=== PATIENT | male | born 1980 | race Caucasian/White ===

== ENCOUNTER 2020-12-19 06:09 | Inpatient (IN) | payer BC, SELFPAY ==
[2020-12-19 06:10] VITALS: BP 168/97; PULSE 87; RESP 18; TEMP 36.5; O2SAT 100; BMI 26.7
--- NOTE | 2020-12-19 06:19 | CT_ITS ---
STUDY: CT ABDOMEN AND PELVIS WITH CONTRAST REASON FOR EXAM: Male, 40 years old. LOW ABDONIMAL PAIN, HISTORY OF GASTROSCHISIS AND OBSTRUCTION RADIATION DOSAGE (If Supplied By Facility): CTDIvol = ( 11.66 ) mGy, DLP = ( 743.80 ) mGycm TECHNIQUE: Transaxial images were obtained from the dome of the diaphragm to the symphysis pubis with oral contrast. Oral and amp; IV Gastrografin and amp; 100mL Isovue-300 was administered. Sagittal and coronal images were reconstructed. Individualized dose optimization techniques were used for this CT. COMPARISON: None. FINDINGS: Lung bases: Mild atelectasis/dependent changes. Heart: Unremarkable. Liver: Unremarkable. Gallbladder/biliary ducts: Unremarkable. Pancreas: Unremarkable. Spleen: Punctate splenic granuloma. Adrenal glands: Unremarkable. Kidneys/ureters/bladder: Unremarkable. Prostate: Punctate prostate calcifications. Large bowel/small bowel: Acute small bowel obstruction with point of transition near midline (axial image 90 series 2). Small bowel feces sign (axial image 84 series 2). No perforation. No pneumatosis. Collapsed distal small bowel (axial image 71 series 2). No significant bowel wall thickening. No acute large vessel process. Appendix: Unremarkable (axial image 85 series 2). Gastroesophageal junction/stomach: Unremarkable. Retroperitoneum/lymph nodes: No intra-abdominal free air. No ascites. No pathologically enlarged lymph nodes. Vascular: Unremarkable. Osseous structures: No significant degenerative features. No acute process. Subcutaneous/soft tissues: Ventral scar likely related to patient''s history of gastroschisis. No acute process. CT/Abdomen/Pelvis WITH Contrast IMPRESSION: Acute small bowel obstruction with point of transition near midline Electronically Signed: Jacob Pérez DO at 8:23 EST Tel , Service support ,
--- NOTE | 2020-12-19 06:20 | ED.VIS.GI ---
History of Present Illness Informant: Patient - Abdominal Pain/Flank Pain Onset: Today - around 5 hrs [employer] Context: Sudden Onset Timing: Continuous Quality: Aching Location: - - just right of umbilicus Current Severity: Severe Maximum Severity: Severe Worsened by: Nothing Relieved by: Nothing - Nausea/Vomiting/Emesis GI Symptom: Negative for: Nausea, Vomiting - Diarrhea/Melena/Hematochezia GI Symptom: - - Stopped having bowel movements. See below.. Negative for: Diarrhea, Melena, Hematochezia Associated Symptoms: Negative for: Dysuria, Frequency, Hematuria, Urgency Narrative: Patient had gastroschisis with surgical repair as a , and since then has had 10 or 12 small bowel obstructions. He presents having pain that feels just like 1 of these. He states he typically has 4 or 5 bowel movements per day, and he has not had a bowel movement in 14-16 hours, which is very unusual for him. He denies any vomiting. He has never had to have surgery to repair a bowel obstruction. The majority of his hospitalizations for these issues have been with [facility], however he lives here now. He denies any recent illness or injury prior to the symptoms starting this morning. <Dakota Mejia - Last Filed: 12/19/20 06:20> <Geraldo Marsh - Last Filed: 12/19/20 08:35> Chief Complaint: Abd Pain Past Medical History Past Medical History: None - Except bowel obstructions Surgical History: - - Gastroschisis repair per patient Smoking Status: Former smoker <Dakota Mejia - Last Filed: 12/19/20 06:20> <Geraldo Marsh - Last Filed: 12/19/20 08:35> - Allergies and Home Meds Allergies/Adverse Reactions: Allergies No Known Allergies Allergy (Verified 12/19/20 06:14) Primary Care Physician: Care Physician,No Primary [Primary Care Provider] - Review of Systems General: Denies: Chills, Fever, Sweats Eyes: Denies: Visual changes - bilaterally, Diplopia ENT: Denies: Rhinorrhea, Sore throat Cardiovascular: Denies: Chest pain, Palpitations Respiratory: Denies: Dyspnea, Cough, Dyspnea on exertion Gastrointestinal: Reports: Abdominal pain. Denies: Nausea, Vomiting, Diarrhea, Melena, Hematochezia Genitourinary: Denies: Dysuria, Hematuria, Frequency Musculoskeletal: Denies: Back pain, Swelling, Extremity Pain Skin: Denies: Rash, Wounds Neurological: Denies: Headache, Weakness, Numbness <Dakota Mejia - Last Filed: 12/19/20 06:20> Physical Exam Vital Signs/Narrative: Vital Signs Temp Pulse Resp BP Pulse Ox 12/19/20 06:10 97.7 F L 87 18 168/97 H 100 Inital Vital Signs reviewed: Yes General: Well nourished, Well developed, Acute Distress - Mild, uncomfortable, holding abdomen and pain Head: Normocephalic, Atraumatic Eyes: Perrl, EOMI ENT: Moist mucous membranes, No rhinorrhea Neck: Supple, Nontender Cardiovascular: Regular rate, Regular rhythm, No murmurs Respiratory: No distress, CTA bilaterally, Chest nontender Abdomen: Soft, Normal bowel sounds, No masses, Tender - Very tender just right of umbilicus, otherwise benign, - - Mild distention. Negative for: Guarding, Rebound tenderness Back: Nontender, Normal Inspection. Negative for: CVA tenderness Extremities: Nontender, No edema. Negative for: Calf Tenderness Skin: Normal color, No rash, No Trauma Neurological: Alert, Oriented x3, Cranial nerves II-XII grossly intact, Normal Strength, Normal Sensation, Normal Gait Psychological: Normal affect, Normal Mood <Dakota Mejia - Last Filed: 12/19/20 06:20> Vital Signs/Narrative: Vital Signs Temp Pulse Resp BP Pulse Ox 12/19/20 06:10 97.7 F L 87 18 168/97 H 100 <Geraldo Marsh - Last Filed: 12/19/20 08:35> Diagnostic/Tx/Re-eval - Medical Decision Making IV fluids ordered along with analgesics and prophylactic Zofran, patient states he should be able to tolerate oral contrasted CT scan. Suspect patient will likely have a bowel obstruction and require admission to the hospital, patient checked out to oncoming emergency physician at shift change. <Dakota Mejia - Last Filed: 12/19/20 06:20> Clinical Impression(s) from Imaging Studies Abdomen/Pelvis CT 12/19/20 06:19 IMPRESSION: Acute small bowel obstruction with point of transition near midline Electronically Signed: Jacob Pérez DO at 8:23 EST Tel , Service support , Laboratory Data 12/19/20 12/19/20 12/19/20 06:10 06:10 06:30 WBC 11.7 H RBC 5.30 Hgb 15.9 Hct 48.9 MCV 92.3 MCH 30.0 MCHC 32.5 RDW Std Deviation 44.4 H RDW Coeff of Leighann 13.1 Plt Count 226 MPV 10.9 Immature Gran % (Auto) 0.400 Neut % (Auto) 65.3 Lymph % (Auto) 26.0 [place] % (Auto) 7.1 Eos % (Auto) 0.9 Baso % (Auto) 0.3 Absolute Neuts (auto) 7.7 Absolute Lymphs (auto) 3.05 Nucleated RBC % 0 Sodium 140 Potassium 3.6 Chloride 104 Carbon Dioxide 33.0 H Anion Gap 3 L BUN 19 H Creatinine 0.97 Estim Creat Clear Calc 103.48 Est GFR (MDRD) Af Amer 110 Est GFR (MDRD) Non-Af 91 BUN/Creatinine Ratio 19.6 Glucose 118 H Calcium 9.3 Total Bilirubin 0.50 AST 33 ALT 63 H Alkaline Phosphatase 76 Total Protein 7.9 Albumin 4.2 Globulin 3.7 Albumin/Globulin Ratio 1.1 Lipase 88 Urine Color Yellow Urine Clarity Clear Urine pH 6.0 Ur Specific [place] 1.025 Urine Protein 15 H Urine Glucose (UA) Normal Urine Ketones Negative Urine Occult Blood 10 H Urine Nitrite Negative Urine Bilirubin Negative Urine Urobilinogen Normal Ur Leukocyte Esterase Negative Urine RBC 0-5 SEEN Urine WBC 0 SEEN Ur Squamous Epith Cells 0 SEEN Urine Bacteria 0 SEEN Urine Mucus 0 SEEN - Medical Decision Making Patient was endorsed to me by the outgoing physician. Patient has a history of pediatric gastrochesis with multiple small bowel obstructions. Laboratory work-up was essentially unremarkable. CT abdomen and pelvis with p.o. and IV contrast was performed and per radiology demonstrates a small bowel obstruction with a lead point in the mid abdomen. Patient will be given Afrin and aerosolized lidocaine and an NG tube will be placed. Patient will be admitted under the hospitalist for further treatment. <Geraldo Marsh - Last Filed: 12/19/20 08:35> ED Disposition <Dakota Mejia - Last Filed: 12/19/20 06:20> <Geraldo Marsh - Last Filed: 12/19/20 08:35> - Plan for ED Patient: Disposition: Acute Care Hospital [facility] Diagnosis: Small bowel obstruction
[2020-12-19] MEDS: 0.9% Normal Saline 1,000 ML 1000 ML IV (06:26)
[2020-12-19] MEDS: morphine 10 MG/ML Syringe IV (06:26)
[2020-12-19] MEDS: Ondansetron 4 MG/2 ML Vial IV ×3 (06:27→20:00)
[2020-12-19 06:29] LABS: Absolute Lymphocyte Count 3.05 X10^3/uL (0.83-4.51); Absolute Neutrophil Count 7.7 X10^3/uL (2.0-7.7); Basophil# 0.04 X10^3/uL; Basophil% 0.3 % (0-1); Eosinophils% 0.9 % (0-5); Hematocrit 48.9 % (40-54); Hemoglobin 15.9 g/dL (13.0-16.5); Lymphocyte # 3.05 X10^3/ul (4.0); Mean Corp Hgb Conc 32.5 g/dL (32-36); Mean Corpuscular Volume 92.3 fL (80-94); Mean Platelet Vol. 10.9 fl (6.2-12.0); Monocyte# 0.83 X10^3/uL; Monocyte% 7.1 % (0-10); NRBC Flagged by Analyzer 0 % (0-5); Neutrophil # 7.67 X10^3/uL (2.7-7.7); Neutrophil % 65.3 % (47-70); Platelet Count 226 K/mm3 (150-450); RBC Distribution Width CV 13.1 % (11.6-14.6); RBC Distribution Width SD 44.4 fl (35.1-43.9); White Blood Count 11.7 K/mm3 (4.4-11.0)
[2020-12-19 06:36] LABS: Bacteria 0 SEEN /hpf (None Seen); Mucous, Urine 0 SEEN /hpf (<or=2+); Squamous Epithelial Cells - UA 0 SEEN /hpf (0-5); White Blood Cells 0 SEEN /hpf (0-5)
[2020-12-19 06:43] LABS: Color, Urine Yellow (Yellow); Glucose, Dipstick Normal (Normal); Ketone-Dipstick Negative (Negative); Leukocyte Esterase-Dipstick Negative /ul (Negative); Nitrite-Dipstick Negative (Negative); Occult Blood-Urine 10 /ul (Negative); Protein-Dipstick 15 mg/dl (Negative); Specific Gravity, Urine 1.025 (1.002-1.030); Urine Bilirubin Dipstick Negative (Negative); Urine Clarity Clear (Clear); Urine Urobilinogen Normal (Normal)
[2020-12-19 06:44] LABS: ALB/GLOB Ratio 1.1 RATIO (0.9-2.4); AST(SGOT) 33 U/L (15-37); Alanine Aminotransfer ALT/SGPT 63 U/L (16-61); Albumin, Serum 4.2 g/dL (3.2-5.0); Alkaline Phosphatase 76 U/L (45-117); Anion Gap 3 (5-15); BUN 19 mg/dL (7-18); BUN/Creat Ratio 19.6 RATIO (10-20); Calcium,Total 9.3 mg/dL (8.5-10.1); Chloride 104 mmol/L (98-107); Creatinine, Serum 0.97 mg/dL (0.70-1.30); EST Glomerular Filtration Rate 91 mL/min (>60); Est Glom Filt Rate - Afr Amer 110 mL/min (>60); Estimated Creatinine Clearance 103.48 ml/min; Globulin 3.7 g/dL (2.2-4.2); Glucose 118 mg/dL (74-106); Lipase 88 U/L (73-393); Potassium 3.6 mmol/L (3.5-5.1); Protein, Total 7.9 g/dL (6.4-8.2); Sodium Level 140 mmol/L (136-145)
[2020-12-19 06:49] LABS: Red Blood Cells-Urine 0-5 SEEN /hpf (0-5)
[2020-12-19] MEDS: Oxymetazoline 0.05% 1 SPRAY SPRAY.BTL 2 SPRAY NASAL (08:43)
[2020-12-19] MEDS: Lidocaine 4% 5 ML Ampul 2 ML INHALATION (08:43)
[2020-12-19] MEDS: 0.9% Normal Saline 1,000 ML 150 ML IV (08:44)
[2020-12-19] MEDS: Morphine 4 MG/ML Syringe IV (09:05)
--- NOTE | 2020-12-19 09:08 | RAD_ITS ---
STUDY: X-RAY - ABDOMEN/PELVIS REASON FOR EXAM: Male, 40 years old. lower abdominal pain, hx of bowel obstructions, NG tube placement TECHNIQUE: Single AP view of the abdomen / pelvis. COMPARISON: None. FINDINGS: Nasogastric tube in the left upper quadrant likely in the fundus of the stomach. There is an unremarkable bowel gas pattern. Excreted contrast within the collecting system bilaterally without evidence of obstruction. Normal soft tissue structures. Normal visualized osseous structures. RAD/Abdomen Single View (Portable) IMPRESSION: 1. Nasogastric tube in the left upper quadrant likely in the fundus the stomach. 2. Excreted contrast within the renal collecting system bilaterally without obstruction. 3. No bowel obstruction. Electronically Signed: James Fox MD at 10:01 EST Tel , Service support ,
[2020-12-19 09:42] VITALS: BP 129/74; PULSE 74; RESP 15; TEMP 36.7; O2SAT 99
[2020-12-19 09:49] VITALS: BMI 27.0
--- NOTE | 2020-12-19 10:02 | HP.PCM_ITS ---
Problem List (1) Gastroschisis, congenital Status: Chronic (2) Recurrent small bowel obstructions Status: Chronic (3) Small bowel obstruction Status: Acute History of Present Illness Date of Admission: 12/19/20 Chief Complaint: Abdominal pain. The patient is a 40 year old M with past medical history as mentioned above presented to the emergency room because of abdominal pain. Her symptoms started this morning around 1:30 AM after he was about to go to bed, starting having abdominal pain, mid abdominal pain, throbbing pain, 8 out of 10 in severity, not radiating, associated with nausea and without aggravating or relieving factors. The pain was constant. His last bowel movement was yesterday afternoon. He has been passing flatus. He denies fever or chills. He had a history of gastroschisis at , underwent multiple abdominal surgeries shortly after and he has been having frequent recurrent small bowel obstructions. Last small obstruction episode that he had was 5 years ago. In the emergency department, his blood pressure was slight elevated, other vital signs were stable. Routine blood work was remarkable for minimal leukocytosis, otherwise normal. LFT and lipase were normal. Urinalysis showed no evidence of acute cystitis. CT scan abdomen and pelvis with contrast revealed acute small bowel obstruction with point of transition near the midline. NG tube inserted in the ED and KUB confirmed the position of the NGT. He is being admitted for acute small bowel obstruction. Past Medical History Past Medical History (Chronic Problems): Chronic Problems Gastroschisis, congenital (Chronic) Recurrent small bowel obstructions (Chronic) Allergies No Known Allergies Allergy (Verified 12/19/20 06:14) Home Medications: Ambulatory Orders Medication Instructions Recorded NK 12/19/20 Surgical History: - - Gastroschisis repair per patient with multiple abdominal surgeries. Psychiatric History: No pertinent psych hx Lives: Spouse/ Significant Other Smoking Status: Never smoker Alcohol: None Drugs: None - *Family History Maternal History Items: No pertinent history Paternal History Items: No pertinent history Review of Systems Constitutional: Denies: Anorexia, Chills, Fever, Weakness Eyes: Denies: Blurred vision, Double vision, Drainage, Redness HEENT: Denies: Difficulty Hearing, Ear Pain, Eye Pain, Nasal Congestion, Sore Throat Cardiovascular: Denies: Chest Pain, Chest Pressure, Edema, Heaviness, Palpitations, Syncope Respiratory: Denies: Cough, Pleuritic Pain, Shortness of Breath, Sputum production, Wheezing Gastrointestinal: Reports: Abdominal Pain, Nausea. Denies: Constipation, Diarrhea, Hematochezia, Melena, Vomiting Genitourinary: Denies: Dysuria, Frequency, Hematuria Musculoskeletal: Denies: Arm Pain, Back Pain, Foot Pain Skin: Denies: Dryness, Rash Neurological: Denies: Balance problems, Blurred vision, Double vision, Slurred speech, Headaches, Numbness Psychiatric: Denies: Anxiety, Depression Endocrine: Denies: Change in Body Habitus, Polydipsia, Polyuria VTE Information - Inpt Only VTE Present on Admission: No VTE Mechan Device Prophylaxis: None VTE Pharm Prophylaxis ordered?: No Patient Problems: Active and Suspected Problems Small bowel obstruction (Acute) - Physical Exam Vitals/I&O's: Vital Signs Temp Pulse Resp BP Pulse Ox 98.1 F 74 15 129/74 H 99 12/19/20 09:42 12/19/20 09:42 12/19/20 09:42 12/19/20 09:42 12/19/20 09:42 Oxygen Delivery Method Room Air Weight: 186 lb 8.177 oz Body Mass Index (BMI) 26.7 Intake and Output for Last 24 Hours 12/17/20 12/18/20 12/19/20 23:59 23:59 23:59 Intake Total 1000 / 1000 Balance 1000 / 1000 General: Alert, Oriented x3, Cooperative, No apparent distress HEENT: Atraumatic, PERRLA, EOMI, Normocephalic Oral: Moist Mucosa, No Gingival or Mucosal Lesions/ Ulcerations Neck: Supple, No JVD, Negative Carotid Bruits, Trachea Midline, Thyroid Normal Size and Texture Lungs: Clear to auscultation, Normal air movement, No rhonchi, No wheeze, No rales Cardiovascular: Regular rate, Regular Rhythm, Normal S1, Normal S2, PMI Normal Abdomen: Soft, Non-Distended, No Hepato-splenomegaly, Hypoactive Bowel Sounds, Tender Extremities: No clubbing, No cyanosis, No edema Skin: No rashes, No breakdown Lymphatic: No Cervical, Supraclavicular, or Inguinal Adenopathy Neurological: Cranial nerves II-XII grossly intact, Motor Exam 5/5 strength throughout Psych/Mental Status: Normal Affect, Appropriate, Alert and oriented to time, place, person, mood and affect Laboratory Results 12/19/20 06:10: WBC 11.7 H, RBC 5.30, Hgb 15.9, Hct 48.9, MCV 92.3, MCH 30.0, MCHC 32.5, RDW Std Deviation 44.4 H, RDW Coeff of Leighann 13.1, Plt Count 226, MPV 10.9, Immature Gran % (Auto) 0.400, Neut % (Auto) 65.3, Lymph % (Auto) 26.0, [place] % (Auto) 7.1, Eos % (Auto) 0.9, Baso % (Auto) 0.3, Absolute Neuts (auto) 7.7, Absolute Lymphs (auto) 3.05, Nucleated RBC % 0 12/19/20 06:10: Sodium 140, Potassium 3.6, Chloride 104, Carbon Dioxide 33.0 H, Anion Gap 3 L, BUN 19 H, Creatinine 0.97, Estim Creat Clear Calc 103.48, Est GFR (MDRD) Af Amer 110, Est GFR (MDRD) Non-Af 91, BUN/Creatinine Ratio 19.6, Glucose 118 H, Calcium 9.3, Total Bilirubin 0.50, AST 33, ALT 63 H, Alkaline Phosphatase 76, Total Protein 7.9, Albumin 4.2, Globulin 3.7, Albumin/Globulin Ratio 1.1, Lipase 88 12/19/20 06:30: Urine Color Yellow, Urine Clarity Clear, Urine pH 6.0, Ur Specific [place] 1.025, Urine Protein 15 H, Urine Glucose (UA) Normal, Urine Ketones Negative, Urine Occult Blood 10 H, Urine Nitrite Negative, Urine Bilirubin Negative, Urine Urobilinogen Normal, Ur Leukocyte Esterase Negative, Urine RBC 0-5 SEEN, Urine WBC 0 SEEN, Ur Squamous Epith Cells 0 SEEN, Urine Bacteria 0 SEEN, Urine Mucus 0 SEEN Clinical Impression(s) from Imaging Studies Abdomen/Pelvis CT 12/19/20 06:19 IMPRESSION: Acute small bowel obstruction with point of transition near midline Electronically Signed: Jacob Pérez DO at 8:23 EST Tel , Service support , KUB X-Ray 12/19/20 09:08 IMPRESSION: 1. Nasogastric tube in the left upper quadrant likely in the fundus the stomach. 2. Excreted contrast within the renal collecting system bilaterally without obstruction. 3. No bowel obstruction. Electronically Signed: James Fox MD at 10:01 EST Tel , Service support , Current Medications Acetaminophen (Acetaminophen 325 Mg Tablet) 650 mg PO Q6H PRN PRN PRN Reason: Pain Score 1-10/Temp > 100.7 F Famotidine 20 mg/ Sodium (Chloride) 10 mls @ 300 mls/hr IV Q12 CHAPIS Sodium Chloride () 250 mls @ 15 mls/hr IV .[id number] PRN PRN Reason: Saline Flush Lactated Ringer's () 1,000 mls @ 100 mls/hr IV .Q10H CHAPIS Morphine Sulfate (Morphine 2 Mg/Ml Syringe) 2 mg IV Q3H PRN PRN PRN Reason: Pain Score 4-10 Ondansetron HCl (Ondansetron 4 Mg/2 Ml Vial) 4 mg IV Q8H PRN PRN PRN Reason: NAUSEA/VOMITING Promethazine HCl (Promethazine 25 Mg/Ml Syringe) 6.25 mg IV Q6H PRN PRN PRN Reason: NAUSEA/VOMITING Sodium Chloride (0.9% Saline Lock 10 Ml Syringe) 10 - 40 ml IV UD PRN PRN Reason: SALINE FLUSH Assessment/Plan All Active Problems Small bowel obstruction (Acute) This is a 40 years old male patient presented to the emergency room because of abdominal pain with nausea and he was found to have acute small bowel obstruction. #1 acute small bowel obstruction: In the setting of recurrent small bowel obstruction due to multiple abdominal surgeries for gastroschisis as an . CT scan abdomen pelvis reviewed. NG tube inserted, position confirmed. CBC and CMP as well as lipase reviewed. Plan: Admit to [facility], n.p.o., IV fluids, IV morphine as needed, IV Zofran as needed, IV Phenergan as needed, IV Pepcid twice daily, continue low continuous suction through the NG tube, general surgery consult, repeat CBC and BMP tomorrow morning. #2 history of gastroschisis: As an infant, status post multiple abdominal surgeries and history of multiple recurrent small bowel obstructions. Plan as above. #3 DVT prophylaxis: Risk patient, no prophylaxis indicated, ambulate. This note was generated with [employer] dictation software. It may contain incorrect words, spelling, and punctuation that were not noted in checking the note before signing. Inpatient E&M: 38827 Init Hosp L2
[2020-12-19] MEDS: Lactated Ringers 1,000 ML 100 ML IV ×2 (10:17→20:03)
--- NOTE | 2020-12-19 10:36 | CASEMGMT ---
Social Work Note SW updated by Charge Nurse that pt would like additional information on advanced directives. SW in to speak with pt. SW introduced self and role at [facility]. Pt is alert and orientated, currently receiving nursing care. SW provided pt with advanced directives documents. SW informed pt that he can complete documents while at [facility] or pt can take documents home to review. SW asked pt what he would like to do. Pt states he will probably just complete documents while at [facility]. SW informed pt that SW Can check back in with pt later today as time allows when pt is no longer receiving nursing care to follow up on advanced directives. Pt states understanding. SW to check back in with pt as time allows. Jacklyn Martinez SMOKEHOUSE WORKER, HIV NURSE
[2020-12-19 10:45] VITALS: BP 108/60; PULSE 61; RESP 18; TEMP 36.9; O2SAT 96
--- NOTE | 2020-12-19 10:48 | CASEMGMT ---
RN JARED Face to Face with patient for initial transition planning/care coordination assessment. RN CM introduced self and role at [facility]. Patient lying in bed, alert and oriented. Patient willing to participate in assessment and is able to answer all questions appropriately. Care providers, pharmacy, and demographics verified. Patient wishes to discharge home, denies need for home health at this time. Patient states he has no further needs or concerns at this time. CM to follow for discharge planning needs that may arise. PCP: none, patient provided with options to select primary care physician Specialists: none [facility]erred [facility]acy: [facility] Insurance: Loc Prescription Benefit: yes Living Will/HPOA: no, no LNOK: friend Martha Living Arrangements: Patient lives with a friend Martha in a two story home. Bed and bathroom on main floor if needed. Pt was indep at home prior to admission. Transportation: self DME/HHC: Pt denies any DME and the need for. Denies previous HHC. Disposition Plan: [place] to [place] home with family support and follow up plans in place.
[2020-12-19] MEDS: Famotidine 200 MG/20 ML MDV 20 MG in 0.9% Normal Saline (Pres. free 8 ML 300 MG IV ×2 (12:01→20:12)
[2020-12-19] MEDS: Morphine 2 MG/ML Syringe IV (12:03)
--- NOTE | 2020-12-19 12:37 | PCM.CONS.GEN ---
Reason for Consult Date of Consultation: 12/19/20 History of Present Illness: The patient is a 40 year old M Presents to the ER due to diffuse abdominal pain and then also a throbbing pain along with it. Patient had gastroschisis when he was born and did have surgery to correct this. Patient states this is the only abdominal surgery he has had. Patient has had multiple episodes of bowel obstructions which have resolved conservatively. Patient states the last 1 was 5 to 6 years ago and all of them have been [place] [facility] Patient states it took about 3 days for the previous 1 to resolve. Typically he will get the diffuse abdominal pain along with some throbbing pain along with that during the previous episodes as well. Patient states last pulmonary he had was at 1 PM yesterday pain started about 1 AM today.Patient denies any bowel movement or flatus since then. Past Medical History Past Medical History (Chronic Problems): Chronic Problems Gastroschisis, congenital (Chronic) Recurrent small bowel obstructions (Chronic) Allergies No Known Allergies Allergy (Verified 12/19/20 06:14) Home Medications: Ambulatory Orders Medication Instructions Recorded NK 12/19/20 Surgical History: - - Gastroschisis repair, no other abdominal surgeries Psychiatric History: No pertinent psych hx Lives: Spouse/ Significant Other Smoking Status: Never smoker Tobacco Use: Cigarettes Alcohol: None Drugs: None - *Family History Maternal History Items: No pertinent history Paternal History Items: No pertinent history Review of Systems Constitutional: Reports: Anorexia Eyes: Denies: Blurred vision HEENT: Denies: Difficulty Swallowing Cardiovascular: Denies: Chest Pain Respiratory: Denies: Cough Gastrointestinal: Reports: Abdominal Pain, Constipation, Nausea. Denies: Hematochezia Genitourinary: Denies: Dysuria Neurological: Denies: Balance problems Psychiatric: Denies: Anxiety, Depression Hematologic/ Lymphatic: Denies: Easy Bruising, Easy Bleeding Patient Problems: Active and Suspected Problems Small bowel obstruction (Acute) - Physical Exam Vitals/I&O's: Vital Signs Temp Pulse Resp BP Pulse Ox 98.4 F 61 18 108/60 96 12/19/20 10:45 12/19/20 10:45 12/19/20 10:45 12/19/20 10:45 12/19/20 10:45 Oxygen Delivery Method Room Air Weight: 188 lb 7.924 oz Body Mass Index (BMI) 27.0 Intake and Output for Last 24 Hours 12/17/20 12/18/20 12/19/20 23:59 23:59 23:59 Intake Total 1432.5 / 1432.5 Output Total 350 / 350 Balance 1082.5 / 1082.5 General: Alert, Oriented x3, Cooperative, No apparent distress, Well developed HEENT: Atraumatic Lungs: Normal air movement Cardiovascular: Regular rate Abdomen: Soft, Non-Distended, Distended - mainly RUQ/RLQ, no PS, - - Well-healed transverse incision at the umbilicus into the right Extremities: No clubbing, No cyanosis, No edema Neurological: Cranial nerves II-XII grossly intact Comment: Reviewed CT abdomen pelvis Laboratory Results 12/19/20 06:10: WBC 11.7 H, RBC 5.30, Hgb 15.9, Hct 48.9, MCV 92.3, MCH 30.0, MCHC 32.5, RDW Std Deviation 44.4 H, RDW Coeff of Leighann 13.1, Plt Count 226, MPV 10.9, Immature Gran % (Auto) 0.400, Neut % (Auto) 65.3, Lymph % (Auto) 26.0, [place] % (Auto) 7.1, Eos % (Auto) 0.9, Baso % (Auto) 0.3, Absolute Neuts (auto) 7.7, Absolute Lymphs (auto) 3.05, Nucleated RBC % 0 12/19/20 06:10: Sodium 140, Potassium 3.6, Chloride 104, Carbon Dioxide 33.0 H, Anion Gap 3 L, BUN 19 H, Creatinine 0.97, Estim Creat Clear Calc 103.48, Est GFR (MDRD) Af Amer 110, Est GFR (MDRD) Non-Af 91, BUN/Creatinine Ratio 19.6, Glucose 118 H, Calcium 9.3, Total Bilirubin 0.50, AST 33, ALT 63 H, Alkaline Phosphatase 76, Total Protein 7.9, Albumin 4.2, Globulin 3.7, Albumin/Globulin Ratio 1.1, Lipase 88 12/19/20 06:30: Urine Color Yellow, Urine Clarity Clear, Urine pH 6.0, Ur Specific [place] 1.025, Urine Protein 15 H, Urine Glucose (UA) Normal, Urine Ketones Negative, Urine Occult Blood 10 H, Urine Nitrite Negative, Urine Bilirubin Negative, Urine Urobilinogen Normal, Ur Leukocyte Esterase Negative, Urine RBC 0-5 SEEN, Urine WBC 0 SEEN, Ur Squamous Epith Cells 0 SEEN, Urine Bacteria 0 SEEN, Urine Mucus 0 SEEN Current Medications Acetaminophen (Acetaminophen 325 Mg Tablet) 650 mg PO Q6H PRN PRN PRN Reason: Pain Score 1-10/Temp > 100.7 F Famotidine 20 mg/ Sodium (Chloride) 10 mls @ 300 mls/hr IV Q12 [facility] Last Infusion: 12/19/20 12:05 Dose: Infused Documented by: Sodium Chloride () 250 mls @ 15 mls/hr IV .[id number] PRN PRN Reason: Saline Flush Lactated Ringer's () 1,000 mls @ 100 mls/hr IV .Q10H [facility] Last Admin: 12/19/20 10:17 Dose: 100 mls/hr Documented by: Morphine Sulfate (Morphine 2 Mg/Ml Syringe) 2 mg IV Q3H PRN PRN PRN Reason: Pain Score 4-10 Last Admin: 12/19/20 12:03 Dose: 2 mg Documented by: Ondansetron HCl (Ondansetron 4 Mg/2 Ml Vial) 4 mg IV Q8H PRN PRN PRN Reason: NAUSEA/VOMITING Promethazine HCl (Promethazine 25 Mg/Ml Syringe) 6.25 mg IV Q6H PRN PRN PRN Reason: NAUSEA/VOMITING Sodium Chloride (0.9% Saline Lock 10 Ml Syringe) 10 - 40 ml IV UD PRN PRN Reason: SALINE FLUSH Assessment/Plan All Active Problems Small bowel obstruction (Acute) 40-year-old male with recurrent small bowel obstruction 1. Continue NG/n.p.o./IV fluids. Will check KUB in the morning if all the previous p.o. contrast has been suctioned with the NG may try to give patient some Gastrografin tomorrow. 2. Encourage ambulation Kendra Durand M.D. Pager: [phone] [facility] [address] [place] [address], Outpatient Pavilion, [address] [place] [address] Office: [phone] Inpatient E&M: [id number] Init Hosp L3
[2020-12-19 15:45] VITALS: BP 112/65; PULSE 73; RESP 18; TEMP 36.9; O2SAT 95; O2SAT 96
--- NOTE | 2020-12-19 16:54 | NURSING ---
reviewed and agree with documentation by JASSON Whaley
[2020-12-19] MEDS: 0.9% Saline Lock 10 ML Syringe IV ×2 (20:00→20:12)
[2020-12-19 20:15] VITALS: BP 129/81; PULSE 72; RESP 16; TEMP 36.5; O2SAT 97
--- NOTE | 2020-12-20 05:00 | RAD_ITS ---
HISTORY: small bowel obstruction EXAMINATION/TECHNIQUE: XR Abdomen 2 images COMPARISON: X-ray of the abdomen and CT scan of the abdomen and pelvis from yesterday FINDINGS: LINES AND TUBES: The tube is present superimposed over the left hemiabdomen, but I believe that is either on or behind the patient, not extending into the patient. BOWEL GAS PATTERN: There is gaseous distention of the hepatic flexure of colon. This was present previously but is greater on the x-ray. On the CT. The multiple distended loops of small bowel and air-fluid levels and distal small bowel obstruction seen on the CT is not appreciated on the x-ray. FREE AIR: Not assessed on a single supine view. ORGANOMEGALY: Not seen. CALCIFICATIONS: No abnormal calcifications observed. LOWER CHEST: No acute pathology. BONES AND SOFT TISSUES: No acute pathology. RAD/Abdomen Single View (Portable) IMPRESSION: Small bowel obstruction seen on the CT knob are appreciated. Gaseous distention of hepatic flexure of colon has increased. at 0623 Reported and signed by: Juvenal Araya MD Electronically Signed: Juvenal Araya MD at 6:22 EST Tel , Service support ,
[2020-12-20] MEDS: Lactated Ringers 1,000 ML 100 ML IV ×2 (05:12→22:54)
[2020-12-20] MEDS: BENZOCAINE/MENTHOL 1 LOZENGE 2 LOZENGE MUCOUS MEM (05:15)
[2020-12-20 05:22] VITALS: BP 119/68; PULSE 78; RESP 16; TEMP 36.9; O2SAT 97
[2020-12-20 06:35] LABS: Absolute Lymphocyte Count 1.41 X10^3/uL (0.83-4.51); Absolute Neutrophil Count 4.8 X10^3/uL (2.0-7.7); Basophil# 0.01 X10^3/uL; Basophil% 0.1 % (0-1); Eosinophil# 0.05 X10^3/uL; Eosinophils% 0.7 % (0-5); Hematocrit 42.6 % (40-54); Hemoglobin 13.8 g/dL (13.0-16.5); Lymphocyte # 1.41 X10^3/ul (4.0); Mean Corp Hgb Conc 32.4 g/dL (32-36); Mean Corpuscular Hgb 29.9 pg (27.0-32.0); Mean Corpuscular Volume 92.4 fL (80-94); Monocyte# 0.47 X10^3/uL; NRBC Flagged by Analyzer 0 % (0-5); Neutrophil # 4.77 X10^3/uL (2.7-7.7); Neutrophil % 70.9 % (47-70); Platelet Count 178 K/mm3 (150-450); RBC Distribution Width CV 13.2 % (11.6-14.6); Red Blood Count 4.61 M/mm3 (4.6-6.2); White Blood Count 6.7 K/mm3 (4.4-11.0)
[2020-12-20 06:54] LABS: Anion Gap 5 (5-15); BUN 13 mg/dL (7-18); BUN/Creat Ratio 15.8 RATIO (10-20); Calcium,Total 8.4 mg/dL (8.5-10.1); Chloride 106 mmol/L (98-107); Creatinine, Serum 0.82 mg/dL (0.70-1.30); EST Glomerular Filtration Rate 109 mL/min (>60); Est Glom Filt Rate - Afr Amer 132 mL/min (>60); Estimated Creatinine Clearance 122.41 ml/min; Glucose 115 mg/dL (74-106); Potassium 3.6 mmol/L (3.5-5.1); Sodium Level 139 mmol/L (136-145)
[2020-12-20 08:00] VITALS: BP 116/67; PULSE 88; RESP 16; TEMP 36.7; O2SAT 98
--- NOTE | 2020-12-20 08:09 | PCM.PN.SRG ---
Patient Problems: Active and Suspected Problems Small bowel obstruction (Acute) Subjective: Patient states he is having flatus however NG put out 1400 yesterday and 200 since 5 AM. - Physical Exam Vitals/I&O's: Vital Signs Temp Pulse Resp BP Pulse Ox 98.4 F 78 16 119/68 97 12/20/20 05:22 12/20/20 05:22 12/20/20 05:22 12/20/20 05:22 12/20/20 05:22 Oxygen Delivery Method Room Air Weight: 188 lb 7.924 oz Body Mass Index (BMI) 27.0 Intake and Output for Last 24 Hours 12/18/20 12/19/20 12/20/20 23:59 23:59 23:59 Intake Total 2559.17 / 2559.17 1065 / 1065 Output Total 1400 / 1400 800 / 800 Balance 1159.17 / 1159.17 265 / 265 General: Alert, Oriented x3, Cooperative, No apparent distress HEENT: Atraumatic Lungs: Normal air movement Cardiovascular: Regular rate Abdomen: Soft, Non-Distended, Tender - Minimal right midabdomen, no peritoneal signs Extremities: No clubbing, No cyanosis, No edema Neurological: Cranial nerves II-XII grossly intact Psych/Mental Status: Normal Affect Laboratory Results 12/20/20 06:23: WBC 6.7, RBC 4.61, Hgb 13.8, Hct 42.6, MCV 92.4, MCH 29.9, MCHC 32.4, RDW Std Deviation 45.0 H, RDW Coeff of Leighann 13.2, Plt Count 178, MPV 11.0, Immature Gran % (Auto) 0.300, Neut % (Auto) 70.9 H, Lymph % (Auto) 21.0, [place] % (Auto) 7.0, Eos % (Auto) 0.7, Baso % (Auto) 0.1, Absolute Neuts (auto) 4.8, Absolute Lymphs (auto) 1.41, Nucleated RBC % 0 12/20/20 06:23: Sodium 139, Potassium 3.6, Chloride 106, Carbon Dioxide 28.0, Anion Gap 5, BUN 13, Creatinine 0.82, Estim Creat Clear Calc 122.41, Est GFR (MDRD) Af Amer 132, Est GFR (MDRD) Non-Af 109, BUN/Creatinine Ratio 15.8, Glucose 115 H, Calcium 8.4 L Current Medications Acetaminophen (Acetaminophen 325 Mg Tablet) 650 mg PO Q6H PRN PRN PRN Reason: Pain Score 1-10/Temp > 100.7 F Famotidine 20 mg/ Sodium (Chloride) 10 mls @ 300 mls/hr IV Q12 [facility] Last Infusion: 12/19/20 20:14 Dose: Infused Documented by: Sodium Chloride () 250 mls @ 15 mls/hr IV .[id number] PRN PRN Reason: Saline Flush Lactated Ringer's () 1,000 mls @ 100 mls/hr IV .Q10H [facility] Last Admin: 12/20/20 05:12 Dose: 100 mls/hr Documented by: Morphine Sulfate (Morphine 2 Mg/Ml Syringe) 2 mg IV Q3H PRN PRN PRN Reason: Pain Score 4-10 Last Admin: 12/19/20 12:03 Dose: 2 mg Documented by: Ondansetron HCl (Ondansetron 4 Mg/2 Ml Vial) 4 mg IV Q8H PRN PRN PRN Reason: NAUSEA/VOMITING Last Admin: 12/19/20 20:00 Dose: 4 mg Documented by: Promethazine HCl (Promethazine 25 Mg/Ml Syringe) 6.25 mg IV Q6H PRN PRN PRN Reason: NAUSEA/VOMITING Sodium Chloride (0.9% Saline Lock 10 Ml Syringe) 10 - 40 ml IV UD PRN PRN Reason: SALINE FLUSH Last Admin: 12/19/20 20:12 Dose: 10 ml Documented by: Throat Lozenges (Benzocaine/Menthol 1 Lozenge) 2 lozenge MUCOUS MEM Q2H PRN PRN PRN Reason: SORE THROAT Last Admin: 12/20/20 05:15 Dose: 2 lozenge Documented by: Medical Necessity - Tobacco Use Smoking Status: Never smoker Tobacco Use: Cigarettes Assessment/Plan All Active Problems Small bowel obstruction (Acute) 40-year-old male with recurrent partial small bowel obstruction 1. We will plan for small bowel follow-through this morning with Gastrografin. 2. Encourage ambulation Kendra Durand M.D. Pager: [phone] [facility] [address] [place] [address], Outpatient Pavilion, [address] [place] [id number] Office: [phone] Inpatient E&M: [id number] Subs Hosp L2
--- NOTE | 2020-12-20 08:16 | RAD_ITS ---
STUDY: X-RAY - SMALL BOWEL SERIES REASON FOR EXAM: Male, 40 years old. HISTORY OF MULTIPLE SBO, DOCTOR REQUESTED ONE HOUR AND THREE HOUR IMAGES ONLY, POST GASTROGRAFIN TECHNIQUE: 2 views of the abdomen were obtained at 1 hour and 3 hours as requested. COMPARISON: None. FINDINGS: Nasogastric tube seen with the tip in the region of the gastric fundus. Nonspecific somewhat dilated proximal small bowel loops. Contrast is seen on the 3 hour image in the pelvic region could be in the colon but difficult to be sure. Normal soft tissue structures. Normal visualized osseous structures. RAD/Small Bowel Series Only IMPRESSION: Contrast seen in the pelvic region at 3 hours could be in the sigmoid colon but difficult to be sure. Faint contrast is seen in the left side of the abdomen probably in the descending colon. Electronically Signed: Wilman Kaur MD at 12:36 EST Tel , Service support ,
--- NOTE | 2020-12-20 08:33 | PCM.PROGNOTE ---
Patient Problems: Active and Suspected Problems Small bowel obstruction (Acute) Subjective: Chief complaint: Follow-up after admission for acute small bowel obstruction. Patient seen and examined. No acute events overnight. He has no more abdominal pain, denied nausea vomiting. He has been passing flatus, no bowel movement. His vital signs are stable. - Physical Exam Vitals/I&O's: Vital Signs Temp Pulse Resp BP Pulse Ox 98.4 F 78 16 119/68 97 12/20/20 05:22 12/20/20 05:22 12/20/20 05:22 12/20/20 05:22 12/20/20 05:22 Oxygen Delivery Method Room Air Weight: 188 lb 7.924 oz Body Mass Index (BMI) 27.0 Intake and Output for Last 24 Hours 12/18/20 12/19/20 12/20/20 23:59 23:59 23:59 Intake Total 2559.17 / 2559.17 1065 / 1065 Output Total 1400 / 1400 800 / 800 Balance 1159.17 / 1159.17 265 / 265 General: Alert, Oriented x3, Cooperative, No apparent distress HEENT: Atraumatic, PERRLA, EOMI, Normocephalic Oral: Moist Mucosa, No Gingival or Mucosal Lesions/ Ulcerations Neck: Supple, No JVD, Negative Carotid Bruits, Trachea Midline, Thyroid Normal Size and Texture Lungs: Clear to auscultation, Normal air movement, No rhonchi, No wheeze, No rales Cardiovascular: Regular rate, Regular Rhythm, Normal S1, Normal S2, No murmurs, PMI Normal Abdomen: Soft, Non-Distended, No Hepato-splenomegaly, Hypoactive Bowel Sounds, Tender Extremities: No clubbing, No cyanosis, No edema Skin: No rashes, No breakdown Lymphatic: No Cervical, Supraclavicular, or Inguinal Adenopathy Neurological: Cranial nerves II-XII grossly intact, Neuro grossly intact Psych/Mental Status: Normal Affect, Appropriate Laboratory Results 12/20/20 06:23: WBC 6.7, RBC 4.61, Hgb 13.8, Hct 42.6, MCV 92.4, MCH 29.9, MCHC 32.4, RDW Std Deviation 45.0 H, RDW Coeff of Leighann 13.2, Plt Count 178, MPV 11.0, Immature Gran % (Auto) 0.300, Neut % (Auto) 70.9 H, Lymph % (Auto) 21.0, Day % (Auto) 7.0, Eos % (Auto) 0.7, Baso % (Auto) 0.1, Absolute Neuts (auto) 4.8, Absolute Lymphs (auto) 1.41, Nucleated RBC % 0 12/20/20 06:23: Sodium 139, Potassium 3.6, Chloride 106, Carbon Dioxide 28.0, Anion Gap 5, BUN 13, Creatinine 0.82, Estim Creat Clear Calc 122.41, Est GFR (MDRD) Af Amer 132, Est GFR (MDRD) Non-Af 109, BUN/Creatinine Ratio 15.8, Glucose 115 H, Calcium 8.4 L Current Medications Acetaminophen (Acetaminophen 325 Mg Tablet) 650 mg PO Q6H PRN PRN PRN Reason: Pain Score 1-10/Temp > 100.7 F Famotidine 20 mg/ Sodium (Chloride) 10 mls @ 300 mls/hr IV Q12 [facility] Last Infusion: 12/19/20 20:14 Dose: Infused Documented by: Sodium Chloride () 250 mls @ 15 mls/hr IV .[id number] PRN PRN Reason: Saline Flush Lactated Ringer's () 1,000 mls @ 100 mls/hr IV .Q10H [facility] Last Admin: 12/20/20 05:12 Dose: 100 mls/hr Documented by: Morphine Sulfate (Morphine 2 Mg/Ml Syringe) 2 mg IV Q3H PRN PRN PRN Reason: Pain Score 4-10 Last Admin: 12/19/20 12:03 Dose: 2 mg Documented by: Ondansetron HCl (Ondansetron 4 Mg/2 Ml Vial) 4 mg IV Q8H PRN PRN PRN Reason: NAUSEA/VOMITING Last Admin: 12/19/20 20:00 Dose: 4 mg Documented by: Promethazine HCl (Promethazine 25 Mg/Ml Syringe) 6.25 mg IV Q6H PRN PRN PRN Reason: NAUSEA/VOMITING Sodium Chloride (0.9% Saline Lock 10 Ml Syringe) 10 - 40 ml IV UD PRN PRN Reason: SALINE FLUSH Last Admin: 12/19/20 20:12 Dose: 10 ml Documented by: Throat Lozenges (Benzocaine/Menthol 1 Lozenge) 2 lozenge MUCOUS MEM Q2H PRN PRN PRN Reason: SORE THROAT Last Admin: 12/20/20 05:15 Dose: 2 lozenge Documented by: Medical Necessity - Tobacco Use Smoking Status: Never smoker Tobacco Use: Cigarettes Assessment/Plan All Active Problems Small bowel obstruction (Acute) This is a 40 years old male patient presented to the emergency room because of abdominal pain with nausea and he was found to have acute small bowel obstruction. #1 acute small bowel obstruction: He is on NG tube with low suction, n.p.o., IV morphine, IV fluids, IV antiemetics. Symptoms are has been improving, has been passing flatus, no bowel movement. Repeat CBC and BMP from today reviewed, was unremarkable. KUB from today reviewed, still having bowel obstruction. General surgery on the case. Plan to continue same treatment, plan for small bowel follow-through with Gastrografin.. #2 history of gastroschisis: As an , status post multiple abdominal surgeries and history of multiple recurrent small bowel obstructions. Plan as above. #3 DVT prophylaxis: Risk patient, no prophylaxis indicated, ambulate. This note was generated with [employer] dictation software. It may contain incorrect words, spelling, and punctuation that were not noted in checking the note before signing. Inpatient E&M: [id number] Subs Hosp L2
--- NOTE | 2020-12-20 08:49 | NURSING ---
Pt is given contrast to drink and notified that he will be taken down for xray later.
[2020-12-20] MEDS: Famotidine 200 MG/20 ML MDV 20 MG in 0.9% Normal Saline (Pres. free 8 ML 300 MG IV ×2 (09:32→21:10)
[2020-12-20 16:16] VITALS: BP 107/72; PULSE 62; RESP 16; TEMP 36.3; O2SAT 98
[2020-12-20 19:55] VITALS: BP 116/68; PULSE 67; RESP 16; TEMP 37.1; O2SAT 97
[2020-12-21 02:12] VITALS: BP 117/59; PULSE 74; RESP 16; TEMP 37.1; O2SAT 94
--- NOTE | 2020-12-21 04:50 | RAD_ITS ---
HISTORY: Small bowel obstruction. NG tube is removed. Comparison study is from about 19 hours earlier Findings: Consistent with history the nasogastric tube has been removed. Contrast is now more concentrated within the sigmoid colon and near the rectum. Gaseous distention of small bowel remains. Bowel wall thickening and thumbprinting the small bowel remains. No free air is perceived. Lung bases are clear. Elevation of the right hemidiaphragm persists. RAD/Abdomen Single View (Portable) IMPRESSION: Passage of contrasted material from small bowel and upstream colon into the sigmoid colon. Persistent small bowel wall thickening in small bowel distention. at 0641 Reported and signed by: Juvenal Araya MD Electronically Signed: Juvenal Araya MD at 6:40 EST Tel , Service support ,
--- NOTE | 2020-12-21 08:30 | PCM.PN.SRG ---
Patient Problems: Active and Suspected Problems Small bowel obstruction (Acute) Subjective: Patient tolerated soft diet yesterday. Small bowel follow-through showed contrast in the colon patient did have bowel function - Physical Exam Vitals/I&O's: Vital Signs Temp Pulse Resp BP Pulse Ox 98.8 F 74 16 117/59 L 94 12/21/20 02:12 12/21/20 02:12 12/21/20 02:12 12/21/20 02:12 12/21/20 02:12 Oxygen Delivery Method Room Air Weight: 188 lb 7.924 oz Body Mass Index (BMI) 27.0 Intake and Output for Last 24 Hours 12/19/20 12/20/20 12/21/20 23:59 23:59 23:59 Intake Total 2559.17 / 2559.17 3232 / 3232 Output Total 1400 / 1400 1000 / 1000 Balance 1159.17 / 1159.17 2232 / 2232 General: Alert, Oriented x3, Cooperative, No apparent distress HEENT: Atraumatic Lungs: Normal air movement Cardiovascular: Regular rate Abdomen: Soft, Non Tender, Non-Distended Extremities: No clubbing, No cyanosis, No edema Current Medications Acetaminophen (Acetaminophen 325 Mg Tablet) 650 mg PO Q6H PRN PRN PRN Reason: Pain Score 1-10/Temp > 100.7 F Famotidine 20 mg/ Sodium (Chloride) 10 mls @ 300 mls/hr IV Q12 [facility] Last Infusion: 12/20/20 21:12 Dose: Infused Documented by: Sodium Chloride () 250 mls @ 15 mls/hr IV .[id number] PRN PRN Reason: Saline Flush Lactated Ringer's () 1,000 mls @ 100 mls/hr IV .Q10H [facility] Last Admin: 12/20/20 22:54 Dose: 100 mls/hr Documented by: Morphine Sulfate (Morphine 2 Mg/Ml Syringe) 2 mg IV Q3H PRN PRN PRN Reason: Pain Score 4-10 Last Admin: 12/19/20 12:03 Dose: 2 mg Documented by: Ondansetron HCl (Ondansetron 4 Mg/2 Ml Vial) 4 mg IV Q8H PRN PRN PRN Reason: NAUSEA/VOMITING Last Admin: 12/19/20 20:00 Dose: 4 mg Documented by: Promethazine HCl (Promethazine 25 Mg/Ml Syringe) 6.25 mg IV Q6H PRN PRN PRN Reason: NAUSEA/VOMITING Sodium Chloride (0.9% Saline Lock 10 Ml Syringe) 10 - 40 ml IV UD PRN PRN Reason: SALINE FLUSH Last Admin: 12/19/20 20:12 Dose: 10 ml Documented by: Throat Lozenges (Benzocaine/Menthol 1 Lozenge) 2 lozenge MUCOUS MEM Q2H PRN PRN PRN Reason: SORE THROAT Last Admin: 12/20/20 05:15 Dose: 2 lozenge Documented by: Medical Necessity - Tobacco Use Smoking Status: Never smoker Tobacco Use: Cigarettes Assessment/Plan All Active Problems Small bowel obstruction (Acute) 40-year-old male with recurrent partial small bowel obstruction?resolved 1. Patient contrast going to his colon Had bowel function advance to soft diet and tolerated. Okay to DC 2. Encourage ambulation Kendra Durand M.D. Pager: [phone] [facility] [address] [place] [address], Out[address] [place], [address] [place] [address] Office: [phone] Inpatient E&M: [id number] Subs Hosp L2
[2020-12-21 08:51] VITALS: BP 110/63; PULSE 73; RESP 16; TEMP 36.6; O2SAT 97
[2020-12-21 08:53] VITALS: RESP 18
--- NOTE | 2020-12-21 09:00 | DCINST_ITS ---
- Discharge Diagnoses Current Active Problems: Current Active and Chronic Problems Gastroschisis, congenital (Chronic) Recurrent small bowel obstructions (Chronic) Small bowel obstruction (Acute) You will use the following diet at home:: Other - Soft diet, advance as tolerated. Discharge Activity: Return to Normal Activity Weight Bearing Status: Full weight bearing Call your doctor if you observe: Fever of 101 or Higher, Shortness of breath, Dizziness, Fainting spells, Chest pain, Increased palpitations (irregular heartbeat), Uncontrolled pain Allergies/Adverse Reactions: Allergies No Known Allergies Allergy (Verified 12/19/20 06:14) Medications to take at Discharge NK 12/19/20 Primary Care Physician: Care Physician,No Primary [Primary Care Provider] - Please follow up with your Primary Care Physician in: 1-2 weeks. Test Results: Test results from this visit will be discussed in further detail at your follow- up appointment, if applicable.
[2020-12-21] MEDS: Famotidine 200 MG/20 ML MDV 20 MG in 0.9% Normal Saline (Pres. free 8 ML 300 MG IV (09:07)
[2020-12-21 11:00] VITALS: BP 118/64; PULSE 70; RESP 18; TEMP 36.8
--- NOTE | 2020-12-21 12:38 | DS.PCM_ITS ---
Discharge Date and Diagnosis - Problem List Patient Problems: Active and Suspected Problems Small bowel obstruction (Acute) Date of Admission: 12/19/20 Date of Discharge: 12/21/20 - Primary Discharge Diagnosis Acute Problems: Active Problems Small bowel obstruction (Acute) - Secondary Discharge Diagnosis Chronic Problems: Chronic Problems Gastroschisis, congenital (Chronic) Recurrent small bowel obstructions (Chronic) Hospital Course and Treatment Imaging Results: 12/21/20 04:50 KUB [Abdomen Single View (Portable)] [RAD] AM (NON MEDS) Clinical Impression(s) from Imaging Studies Abdomen/Pelvis CT 12/19/20 06:19 IMPRESSION: Acute small bowel obstruction with point of transition near midline Electronically Signed: Jacob Pérez DO at 8:23 EST Tel , Service support , KUB X-Ray 12/19/20 09:08 IMPRESSION: 1. Nasogastric tube in the left upper quadrant likely in the fundus the stomach. 2. Excreted contrast within the renal collecting system bilaterally without obstruction. 3. No bowel obstruction. Electronically Signed: James Fox MD at 10:01 EST Tel , Service support , KUB X-Ray 12/20/20 05:00 IMPRESSION: Small bowel obstruction seen on the CT knob are appreciated. Gaseous distention of hepatic flexure of colon has increased. at 0623 Reported and signed by: Juvenal Araya MD Electronically Signed: Juvenal Araya MD at 6:22 EST Tel , Service support , KUB X-Ray 12/21/20 04:50 IMPRESSION: Passage of contrasted material from small bowel and upstream colon into the sigmoid colon. Persistent small bowel wall thickening in small bowel distention. at 0641 Reported and signed by: Juvenal Araya MD Electronically Signed: Juvenal Araya MD at 6:40 EST Tel , Service support , Dr. Arauz, general surgery. Operations: None Procedures: - - NG tube insertion and suction. Summary of Care Provided: Patient seen and examined on the day of discharge and appeared to be stable to be discharged home. NG tube taken out. He has no more abdominal pain, no more nausea or vomiting. He has been passing flatus and had bowel movement. His vital signs are stable. The patient is a 40 year old M presented to the emergency room because of abdominal pain with nausea and he was found to have acute small bowel obstruction. Patient had a history of gastroschisis as an and he underwent multiple abdominal surgeries shortly after . Since then, he has been having recurrent small bowel obstructions and last episode was around [address] scan abdomen and pelvis with contrast done and showed findings consistent with acute small bowel obstruction. Patient's routine blood work was unremarkable. LFT and lipase were normal. Urinalysis showed no evidence of acute cystitis. He was admitted to the floor, started on IV fluids, IV morphine as needed for pain, IV antiemetics, NG tube inserted with low continuous suction. General surgery consulted and agreed with the conservative treatment. With above-mentioned treatment, patient symptoms improved, his pain subsided and he had no more nausea or vomiting. He started passing flatus and he had bowel movement. NG tube taken out and he had no more symptoms. Patient discharged home in a stable medical condition, recommended to stay on soft diet and advance as tolerated, no prescriptions given upon discharge, recommended follow-up with PCP in 1 to 2 weeks. Patient Problems: Active and Suspected Problems Small bowel obstruction (Acute) - Physical Exam Vitals/I&O's: Vital Signs Temp Pulse Resp BP Pulse Ox 98.3 F 70 18 118/64 97 12/21/20 11:00 12/21/20 11:00 12/21/20 11:00 12/21/20 11:12/21/20 08:51 Oxygen Delivery Method Room Air Weight: 188 lb 7.924 oz Body Mass Index (BMI) 27.0 Intake and Output for Last 24 Hours 0212/20/20 12/21/20 23:59 23:59 23:59 Intake Total 2559.17 / 2559.17 3232 / 3232 1010 / 1010 Output Total 1400 / 1400 1000 / 1000 Balance 1159.17 / 1159.17 2232 / 2232 1010 / 1010 General: Alert, Oriented x3, Cooperative, No apparent distress HEENT: Atraumatic, PERRLA, EOMI, Normocephalic Oral: Moist Mucosa, No Gingival or Mucosal Lesions/ Ulcerations Neck: Supple, No JVD, Negative Carotid Bruits, Trachea Midline, Thyroid Normal Size and Texture Lungs: Clear to auscultation, Normal air movement, No rhonchi, No wheeze, No rales Cardiovascular: Regular rate, Regular Rhythm, Normal S1, Normal S2, PMI Normal Abdomen: Bowel Sounds Present, Soft, Non Tender, Non-Distended, No Hepato- splenomegaly Extremities: No clubbing, No cyanosis, No edema Skin: No rashes, No breakdown Lymphatic: No Cervical, Supraclavicular, or Inguinal Adenopathy Neurological: Cranial nerves II-XII grossly intact, Neuro grossly intact Psych/Mental Status: Normal Affect, Appropriate Discharge Activity: Return to Normal Activity Weight Bearing Status: Full weight bearing Call your doctor if you observe: Fever of 101 or Higher, Shortness of breath, Dizziness, Fainting spells, Chest pain, Increased palpitations (irregular heartbeat), Uncontrolled pain Home Medications: Medications to take at Discharge NK 12/19/20 Primary Care Physician: Care Physician,No Primary [Primary Care Provider] - Please follow up with your Primary Care Physician in: 1-2 weeks. Disposition: Home Minutes spent on discharge:: 27 Patient Condition:: Stable Medical Necessity - Tobacco Use Smoking Status: Never smoker Tobacco Use: Cigarettes Meaningful Use Info Meaningful Use Diagnoses (Choose all that apply): None applicable Inpatient E&M: 35493 Disch Hosp
== END 2020-12-21 11:16 | disposition home or self-care (01) | DRG 390 ==
LOC: ED 08:35 → MS3 09:24
PROVIDERS: Emergency Medicine; Admitting Provider Hospitalist; Emergency Provider Emergency Medicine; Visit Provider Hospitalist
DX: K56.600 Partial intestinal obstruction, unspecified as to cause (principal); F17.210 Nicotine dependence, cigarettes, uncomplicated; Z87.738 Personal history of other specified (corrected) congenital malformations of digestive system
CPT/HCPCS: 36415; 74018; 74177; 74250; 80048; 80053; 81001; 83690; 85025; 94640; 99251; 99285; J7030; J7120; Q9967; A4216; G0463; J2405; J3490

== ENCOUNTER 2022-01-02 02:19 | Inpatient (IN) | payer BC, SELFPAY ==
[2022-01-02] VITALS (8 sets, daily range): BP systolic 117–152; BP diastolic 67–98; PULSE 55–89; RESP 14–17; TEMP 36.6–37; O2SAT 96–99; BMI 27.3
--- NOTE | 2022-01-02 02:30 | CT_ITS ---
EXAM: CT ABDOMEN AND PELVIS WITH INTRAVENOUS CONTRAST CLINICAL INDICATION: right sided abd pain, nausea, hx SBO -- IV PO Contrast December 2019. TECHNIQUE: Helically acquired images were obtained of the abdomen and pelvis with intravenous contrast. CTDIvol = ( 15.06 ) mGy, DLP = ( 1150.00 ) mGycm This CT exam was performed using one or more of the following dose reduction techniques: automated exposure control, adjustment of the mA and/or kV according to patient size, and/or use of iterative reconstruction technique. This report was created using [employer] report [email or web address] technology. CONTRAST: Oral and amp; IV Gastrografin and amp; 100mL Isovue-300 COMPARISON: None. FINDINGS: LOWER THORAX: Unremarkable. Lung bases are clear. No cardiomegaly. No significant pericardial effusion. ABDOMEN: LIVER: Unremarkable. Homogeneous. No focal mass. GALLBLADDER AND BILE DUCTS: Unremarkable. No calcified gallstones. No gallbladder distention or wall edema. No intra- or extrahepatic biliary ductal dilation. PANCREAS: Unremarkable. No focal cystic or solid mass. SPLEEN: Small calcified granulomas of the spleen. ADRENALS: Unremarkable. No nodules. KIDNEYS AND URETERS: Unremarkable. Normal renal size and position. No hydronephrosis. STOMACH AND BOWEL: Dilated small bowel loops in the right abdomen/paracolic gutter are concerning for a bowel obstruction. Several loops show mild circumferential wall thickening potentially associated with the infectious, inflammatory or ischemic ileitis. Consider the possibility of internal hernia as a potential cause. No pneumatosis or portal venous gas. No free air. PELVIS: APPENDIX: No evidence of acute appendicitis. BLADDER: Unremarkable. REPRODUCTIVE: Unremarkable as visualized. No mass. ABDOMEN and PELVIS: INTRAPERITONEAL SPACE: No free air or free fluid. BONES/JOINTS: No suspicious lytic or splenic lesions of bone. SOFT TISSUES: Unremarkable. No discrete abdominal or pelvic wall hernia. VASCULATURE: Unremarkable. Abdominal aorta is non-dilated. LYMPH NODES: Unremarkable. No enlarged lymph nodes. OTHER FINDINGS: No abscess. CT/Abdomen/Pelvis WITH Contrast IMPRESSION: Dilated small bowel loops in the right abdomen/paracolic gutter are concerning for a bowel obstruction. Several loops show mild circumferential wall thickening potentially associated with the infectious, inflammatory or ischemic ileitis. Consider the possibility of internal hernia as a potential cause. Electronically Signed: Rivas Mendoza MD at 4:48 EST ,
--- NOTE | 2022-01-02 02:31 | EDS_ITS ---
HPI HPI - GI History of Present Illness Chief Complaint: Abd Pain Informant: patient Abdominal Pain/Flank Pain Onset: Hours (7) Context: Gradual Onset Timing: Continuous Quality: Aching Location: RUQ and RLQ Current Severity: Moderate Maximum Severity: Moderate Worsened by: Nothing Relieved by: Nothing Nausea/Vomiting/Emesis GI Symptom: Positive for Nausea; Negative for Vomiting Diarrhea/Melena/Hematochezia GI Symptom: Positive for - (Last bowel movement 2 days ago, usually goes daily); Negative for Diarrhea, Melena and Hematochezia Narrative Narrative: Patient had gastroschisis as a baby which was repaired, and then started having bowel obstructions when he was 17 and has had multiple recurrent bowel obstructions. They have all been treated nonoperatively. He feels like he started having another one tonight. Prior similar symptoms: Yes (SBOs in past) [facility] Medical History (Updated 01/02/22 @ 05:[address] Dakota Mejia MD) Gastroschisis, congenital Recurrent small bowel obstructions Small bowel obstruction Home Medications NK 12/19/20 [History Last Taken Unknown] Allergy/AdvReac Type Severity Reaction Status Date / Time No Known Allergies Allergy Verified 01/02/22 02:39 Surgical History (Updated 01/02/22 @ 02:[address] Dakota Mejia MD) S/P gastroschisis repair, follow-up exam Social History Smoking Status: Never smoker ROS ROS ED Constitutional Constitutional ED: Denies chills or fever(s) Eyes Eyes: Denies change in vision or diplopia ENT ENT ED: Denies rhinorrhea or sore throat Cardiovascular Cardiovascular: Denies chest pain or palpitations Respiratory/Chest Respiratory/Chest: Denies cough or dyspnea Gastrointestinal Gastrointestinal: Reports as per HPI, abdominal pain and nausea; Denies diarrhea or vomiting Genitourinary Genitourinary ED: Denies dysuria or hematuria Musculoskeletal Musculoskeletal: Denies back pain or neck pain Integumentary Denies abscess or rash Neurologic Neurologic: Denies headache(s), paresthesias or weakness Psychiatric Psychiatric: Denies anxiety or suicidal thoughts EXAM Physical Exam Const Vital Signs: 01/02/22 02:20 01/02/22 02:23 01/02/22 05:25 Temperature 97.9 F Temperature Source Temporal Pulse Rate 89 83 Respiratory Rate 17 16 Blood Pressure 152/98 H 135/94 H Blood Pressure Mean 116 107 Pulse Ox 99 97 Oxygen Delivery Method Room Air Room Air Positive well nourished and well developed General Appearance ED: well developed and NAD HEENT Reports moist mucous membranes normocephalic and atraumatic Eyes PERRL and EOMs intact bilaterally Neck full ROM and supple Resp normal respiratory effort and clear to auscultation bilaterally Cardio regular rate, regular rhythm and no murmurs GI non-distended GI Narrative: Tender epigastrium but more throughout right side of abdomen nonfocal. No palpable mass. No guarding or rebound tenderness. Auscultation: normoactive bowel sounds Palpation: soft Back/Spine no CVA tenderness General Back: other FROM Extremity normal to inspection General Extremety ED: Negative for edema, pulses abnormal or tenderness General Extremity: Negative for edema or pulses abnormal Neuro oriented x3, CN's II-XII intact bilaterally and no sensory deficits noted Sensorium / Orientation: awake and alert Motor Exam: strength 5/5 throughout Skin no rashes or lesions noted and no wounds MDM MDM MDM Narrative Medical decision making narrative: Work-up included labs and a CT with oral and IV contrast, suspicious for a bowel obstruction, radiologist comments and results are noted see below. Patient has a white blood count of 11.6, mildly elevated with a leftward trend. He was given IV fluids, analgesics, Zofran, he remained clinically stable in the emergency department. Discussed with Dr. Acosta; will admit. NGT placed in ED w/ minimal output. Lab Data Attestation: I reviewed the patient's lab results. Labs: Laboratory Results - last 24 hr 01/02/22 01/02/22 01/02/22 02:25 02:25 03:14 WBC 11.6 H RBC 5.21 Hgb 16.2 Hct 48.4 MCV 92.9 MCH 31.1 MCHC 33.5 RDW Std Deviation 45.1 H RDW Coeff of Leighann 13.2 Plt Count 223 MPV 11.1 Immature Gran % (Auto) 0.300 Neut % (Auto) 80.4 H Lymph % (Auto) 13.[address] [place] % (Auto) 5.3 Eos % (Auto) 0.4 Baso % (Auto) 0.3 Absolute Neuts (auto) 9.3 H Absolute Lymphs (auto) 1.54 Nucleated RBC % 0 Sodium 140 Potassium 4.1 Chloride 108 H Carbon Dioxide 29.0 Anion Gap 3 L BUN 16 Creatinine 0.92 Estim Creat Clear Calc 108.00 Est GFR (MDRD) Af Amer 115 Est GFR (MDRD) Non-Af 95 BUN/Creatinine Ratio 17.3 Glucose 125 H Lactic Acid Calcium 9.4 Total Bilirubin 0.30 AST 27 ALT 67 H Alkaline Phosphatase 64 Total Protein 7.5 Albumin 4.0 Globulin 3.5 Albumin/Globulin Ratio 1.1 Lipase 78 Urine Color Yellow Urine Clarity Clear Urine pH 6.0 Ur Specific [place] 1.025 Urine Protein Negative Urine Glucose (UA) Normal Urine Ketones 5 H Urine Occult Blood Negative Urine Nitrite Negative Urine Bilirubin Negative Urine Urobilinogen Normal Ur Leukocyte Esterase Negative Urine RBC 0 SEEN Urine WBC 0 SEEN Ur Squamous Epith Cells 0 SEEN Urine Bacteria 1+ Urine Mucus 0 SEEN 01/02/22 05:30 WBC RBC Hgb Hct MCV MCH MCHC RDW Std Deviation RDW Coeff of Leighann Plt Count MPV Immature Gran % (Auto) Neut % (Auto) Lymph % (Auto) [place] % (Auto) Eos % (Auto) Baso % (Auto) Absolute Neuts (auto) Absolute Lymphs (auto) Nucleated RBC % Sodium Potassium Chloride Carbon Dioxide Anion Gap BUN Creatinine Estim Creat Clear Calc Est GFR (MDRD) Af Amer Est GFR (MDRD) Non-Af BUN/Creatinine Ratio Glucose Lactic Acid 1.3 Calcium Total Bilirubin AST ALT Alkaline Phosphatase Total Protein Albumin Globulin Albumin/Globulin Ratio Lipase Urine Color Urine Clarity Urine pH Ur Specific [place] Urine Protein Urine Glucose (UA) Urine Ketones Urine Occult Blood Urine Nitrite Urine Bilirubin Urine Urobilinogen Ur Leukocyte Esterase Urine RBC Urine WBC Ur Squamous Epith Cells Urine Bacteria Urine Mucus Radiography Diagnostic Testing: Clinical Impression(s) from Imaging Studies Abdomen/Pelvis CT 01/02/22 02:30 IMPRESSION: Dilated small bowel loops in the right abdomen/paracolic gutter are concerning for a bowel obstruction. Several loops show mild circumferential wall thickening potentially associated with the infectious, inflammatory or ischemic ileitis. Consider the possibility of internal hernia as a potential cause. Electronically Signed: Rivas Mendoza MD at 4:48 EST , ADDENDUM: 01/02/22 0534 IMPRESSION: Dilated small bowel loops in the right abdomen/paracolic gutter are concerning for a bowel obstruction. Several loops show mild circumferential wall thickening potentially associated with the infectious, inflammatory or ischemic ileitis. Consider the possibility of internal hernia as a potential cause. N.B. : Samantha Ortiz RN, confirmed on 01/02/2022 05:27:46 (ET) that the healthcare facility has received the radiology report. Electronically Signed: Rivas Mendoza MD at 4:48 EST , KUB X-Ray 01/02/22 06:10 IMPRESSION: 1. Enteric tube with tip in the body of the stomach. 2. Dilated small bowel loops as seen on the CT exam. at 0652 Reported and signed by: Grzegorz Cohen MD Electronically Signed: Grzegorz Cohen MD at 6:51 EST , Discharge Plan Dx/Rx/DC Orders Clinical Impression: Small bowel obstruction Disposition Disposition: Acute Care Hospital [facility]
[2022-01-02 02:35] LABS: Absolute Lymphocyte Count 1.54 X10^3/uL (0.83-4.51); Absolute Neutrophil Count 9.3 X10^3/uL (2.0-7.7); Basophil# 0.04 X10^3/uL; Basophil% 0.3 % (0-1); Eosinophil# 0.05 X10^3/uL; Eosinophils% 0.4 % (0-5); Hematocrit 48.4 % (40-54); Hemoglobin 16.2 g/dL (13.0-16.5); Lymphocyte # 1.54 X10^3/ul (0.83-4.51); Lymphocyte % 13.3 % (19-41); Mean Corp Hgb Conc 33.5 g/dL (32-36); Mean Corpuscular Hgb 31.1 pg (27.0-32.0); Mean Corpuscular Volume 92.9 fL (80-94); Mean Platelet Vol. 11.1 fl (6.2-12.0); Monocyte# 0.61 X10^3/uL; Monocyte% 5.3 % (0-10); NRBC Flagged by Analyzer 0 % (0-5); Neutrophil # 9.33 X10^3/uL (2.7-7.7); Neutrophil % 80.4 % (47-70); Platelet Count 223 K/mm3 (150-450); RBC Distribution Width CV 13.2 % (11.6-14.6); RBC Distribution Width SD 45.1 fl (35.1-43.9); Red Blood Count 5.21 M/mm3 (4.6-6.2); White Blood Count 11.6 K/mm3 (4.4-11.0)
[2022-01-02] MEDS: 0.9% Normal Saline 1,000 ML 1000 ML IV (02:37)
[2022-01-02] MEDS: Morphine 4 MG/ML Syringe IV ×2 (02:37→05:22)
[2022-01-02] MEDS: Ondansetron 4 MG/2 ML Vial IV (02:37)
[2022-01-02 02:52] LABS: ALB/GLOB Ratio 1.1 RATIO (0.9-2.4); AST(SGOT) 27 U/L (15-37); Alanine Aminotransfer ALT/SGPT 67 U/L (16-61); Alkaline Phosphatase 64 U/L (45-117); Anion Gap 3 (5-15); BUN 16 mg/dL (7-18); BUN/Creat Ratio 17.3 RATIO (10-20); Calcium,Total 9.4 mg/dL (8.5-10.1); Chloride 108 mmol/L (98-107); Creatinine, Serum 0.92 mg/dL (0.70-1.30); EST Glomerular Filtration Rate 95 mL/min (>60); Est Glom Filt Rate - Afr Amer 115 mL/min (>60); Globulin 3.5 g/dL (2.2-4.2); Glucose 125 mg/dL (74-106); Lipase 78 U/L (73-393); Potassium 4.1 mmol/L (3.5-5.1); Protein, Total 7.5 g/dL (6.4-8.2); Sodium Level 140 mmol/L (136-145)
[2022-01-02 03:26] LABS: Mucous, Urine 0 SEEN /hpf (<or=2+); Red Blood Cells-Urine 0 SEEN /hpf (0-5); Squamous Epithelial Cells - UA 0 SEEN /hpf (0-5); White Blood Cells 0 SEEN /hpf (0-5)
[2022-01-02 03:27] LABS: Color, Urine Yellow (Yellow); Glucose, Dipstick Normal (Normal); Ketone-Dipstick 5 mg/dl (Negative); Leukocyte Esterase-Dipstick Negative /ul (Negative); Nitrite-Dipstick Negative (Negative); Occult Blood-Urine Negative /ul (Negative); Protein-Dipstick Negative (Negative); Specific Gravity, Urine 1.025 (1.002-1.030); Urine Bilirubin Dipstick Negative (Negative); Urine Clarity Clear (Clear); Urine Urobilinogen Normal (Normal)
[2022-01-02 03:35] LABS: Bacteria 1+ /hpf (None Seen)
[2022-01-02] MEDS: Lidocaine 4% 5 ML Ampul 2 ML INHALATION (05:54)
[2022-01-02 06:05] LABS: Lactic Acid 1.3 mmol/L (0.4-1.9)
--- NOTE | 2022-01-02 06:10 | RAD_ITS ---
EXAM: XR ABDOMEN, 1 VIEW : 1980 CLINICAL INDICATION: NG Insertion TECHNIQUE: Frontal supine view of the abdomen/pelvis. This report was created using [employer] report generation technology. COMPARISON: None. FINDINGS: LOWER THORAX: No acute pathology. GASTROINTESTINAL TRACT: Dilated small bowel loops as seen on the CT exam. ORGANS: Unremarkable as visualized. No organomegaly. No abnormal calcifications. BONES/JOINTS: No acute pathology. SOFT TISSUES: No acute pathology. TUBES, LINES AND DEVICES: Enteric tube with tip in the body of the stomach. RAD/Abdomen Single View (Portable) IMPRESSION: 1. Enteric tube with tip in the body of the stomach. 2. Dilated small bowel loops as seen on the CT exam. at 0652 Reported and signed by: Grzegorz Cohen MD Electronically Signed: Grzegorz Cohen MD at 6:51 EST ,
--- NOTE | 2022-01-02 06:52 | NURSING ---
med surg wise small bowel obstruction
--- NOTE | 2022-01-02 07:07 | HP.PCM.SX_ITS ---
HPI - General General Date of Admission: 01/02/22 HPI Narrative CHANTALE LYN, is a 41 M who presents with partial small bowel obstruction. He had gastroschisis surgery as an infant. He has had multiple episodes of bowel obstructions requiring admission to the hospital however, none required surgery. The bowel obstructions resolved with IV hydration, bowel rest and NG tube decomp ression. He states that he last had a bowel movement about two days ago. He states that he last passed gas last night/early this morning. States that pain is 5 out 10 at present. [facility] Medical History Gastroschisis, congenital Recurrent small bowel obstructions Small bowel obstruction Home Medications NK 12/19/20 [History Last Taken Unknown] Allergy/AdvReac Type Severity Reaction Status Date / Time No Known Allergies Allergy Verified 01/02/22 02:39 Surgical History S/P gastroschisis repair, follow-up exam Social History Smoking Status: Never smoker ROS Constitutional Constitutional: Denies fever(s) Respiratory/Chest Respiratory/Chest: Denies cough or dyspnea Gastrointestinal Gastrointestinal: Reports abdominal pain; Denies hematemesis or hematochezia Genitourinary Genitourinary: Denies difficulty urinating or hematuria Musculoskeletal Musculoskeletal: Denies difficulty walking or joint swelling Integumentary Integumentary: Denies jaundice Neurologic Neurologic: Denies abnormal gait or loss of vision Hematologic/Lymphatic Hematologic/Lymphatic: Denies easy bleeding Vital Signs Vital Signs Vital Signs: 01/02/22 02:20 01/02/22 02:23 01/02/22 05:25 Temperature 97.9 F Temperature Source Temporal Pulse Rate 89 83 Respiratory Rate 17 16 Blood Pressure 152/98 H 135/94 H Blood Pressure Mean 116 107 Pulse Ox 99 97 Oxygen Delivery Method Room Air Room Air Weight Weight: 86.6 kg Body Mass Index (BMI) 27.3 Physical Exam Const oriented x3 and no apparent distress Resp normal respiratory effort Cardio regular rate and regular rhythm GI soft to palpation GI Narrative: no peritoneal signs Auscultation: absent bowel sounds external exam normal Extremity no clubbing, cyanosis or edema Results Lab / Micro Data Result Diagrams: 01/02/22 02:25 01/02/22 02:25 Labs: Laboratory Results - last 24 hr 01/02/22 02:25: WBC 11.6 H, RBC 5.21, Hgb 16.2, Hct 48.4, MCV 92.9, MCH 31.1, MCHC 33.5, RDW Std Deviation 45.1 H, RDW Coeff of Leighann 13.2, Plt Count 223, MPV 11.1, Immature Gran % (Auto) 0.300, Neut % (Auto) 80.4 H, Lymph % (Auto) 13.3 L, [place] % (Auto) 5.3, Eos % (Auto) 0.4, Baso % (Auto) 0.3, Absolute Neuts (auto) 9.3 H, Absolute Lymphs (auto) 1.54, Nucleated RBC % 0 01/02/22 02:25: Sodium 140, Potassium 4.1, Chloride 108 H, Carbon Dioxide 29.0, Anion Gap 3 L, BUN 16, Creatinine 0.92, Estim Creat Clear Calc 108.00, Est GFR (MDRD) Af Amer 115, Est GFR (MDRD) Non-Af 95, BUN/Creatinine Ratio 17.3, Glucose 125 H, Calcium 9.4, Total Bilirubin 0.30, AST 27, ALT 67 H, Alkaline Phosphatase 64, Total Protein 7.5, Albumin 4.0, Globulin 3.5, Albumin/Globulin Ratio 1.1, Lipase 78 01/02/22 03:14: Urine Color Yellow, Urine Clarity Clear, Urine pH 6.0, Ur Specific [place] 1.025, Urine Protein Negative, Urine Glucose (UA) Normal, Urine Ketones 5 H, Urine Occult Blood Negative, Urine Nitrite Negative, Urine Bilirubin Negative, Urine Urobilinogen Normal, Ur Leukocyte Esterase Negative, Urine RBC 0 SEEN, Urine WBC 0 SEEN, Ur Squamous Epith Cells 0 SEEN, Urine Bacteria 1+, Urine Mucus 0 SEEN 01/02/22 05:30: Lactic Acid 1.3 Radiology Impression Abdomen/Pelvis CT 01/02/22 02:30 IMPRESSION: Dilated small bowel loops in the right abdomen/paracolic gutter are concerning for a bowel obstruction. Several loops show mild circumferential wall thickening potentially associated with the infectious, inflammatory or ischemic ileitis. Consider the possibility of internal hernia as a potential cause. Electronically Signed: Rivas Mendoza MD at 4:48 EST , ADDENDUM: 01/02/22 0534 IMPRESSION: Dilated small bowel loops in the right abdomen/paracolic gutter are concerning for a bowel obstruction. Several loops show mild circumferential wall thickening potentially associated with the infectious, inflammatory or ischemic ileitis. Consider the possibility of internal hernia as a potential cause. N.B. : Samantha Ortiz RN, confirmed on 01/02/2022 05:27:46 (ET) that the healthcare facility has received the radiology report. Electronically Signed: Rivas Mendoza MD at 4:48 EST , KUB X-Ray 01/02/22 06:10 IMPRESSION: 1. Enteric tube with tip in the body of the stomach. 2. Dilated small bowel loops as seen on the CT exam. at 0652 Reported and signed by: Grzegorz Cohen MD Electronically Signed: Grzegorz Cohen MD at 6:51 EST , Assessment & Plan Assessment/Plan (1) Small bowel obstruction: PLAN: Admit for observation IV hydration, NG tube decompression He states that he is OK with toradol for pain I told patient that if he requires surgery, he will be transferred to another larger medical facility, he understands Hopefully patient will not require surgery in this admission
[2022-01-02] MEDS: Oxymetazoline 0.05% 1 SPRAY SPRAY.BTL 2 SPRAY NASAL (07:46)
[2022-01-02] MEDS: Lactated Ringers 1,000 ML 125 ML IV ×2 (08:15→16:28)
[2022-01-02] MEDS: Famotidine 200 MG/20 ML MDV 20 MG in 0.9% Normal Saline (Pres. free 8 ML 300 MG IV ×2 (11:35→21:26)
[2022-01-02] MEDS: Ketorolac 15 MG/ML Vial IV ×2 (11:35→18:34)
[2022-01-02] MEDS: 0.9% Saline Lock 10 ML Syringe IV (11:36)
--- NOTE | 2022-01-02 14:08 | CASEMGMT ---
JASMEET COLEMAN Assessment: Face to Face with pt for initial transition planning/care coordination assessment. RN JARED introduced self and role at [facility], pt voices understanding and consents to assessment. Pt is A/O x4 and answers all questions appropriately at this time. Pt sitting up in bed with NG in in no distress. Care providers, pharmacy, and demographics verified/updated. Admitting Dx: Partial SBO PCP:Pt denies having PCP. Provided pt with local healthcare directory pamphlet. Specialists:Pt denies. Preferred Pharmacy: [facility] Retail Insurance: [employer] Prescription Benefit: yes LW/HPOA: Pt denies having a LW/DPOA and denies need for info regarding AD. LNOK: Martha Chery, sig other Living Arrangements: Pt lives with sig other, her brother and two children in a two story house with 6 steps to enter. Pt reports he is I in ADL's and denies concerns at home. Transportation: Pt drives self and denies concerns with transportation. DME/HHC/SNF: Pt denies having any DME, previous HHC or SNF stays. Pt states no concerns with going home at time of dc. Pt states no further concerns/needs. CM to follow. Advised pt to ask CM if any further question/concerns/needs arise, voices understanding. Pt Goal: Home Plan: Home
--- NOTE | 2022-01-02 14:24 | CASEMGMT ---
According to [facility] website, the following tertiary facilities are in network: [facility], [place], [facility], [facility], [facility], [facility] and .
[2022-01-03] MEDS: Lactated Ringers 1,000 ML 125 ML IV ×2 (00:26→08:55)
[2022-01-03] MEDS: Ketorolac 15 MG/ML Vial IV ×2 (00:26→06:11)
[2022-01-03 04:00] VITALS: BP 134/84; PULSE 71; RESP 16; TEMP 36.8; O2SAT 98
[2022-01-03 08:00] VITALS: BP 128/82; PULSE 63; RESP 18; TEMP 36.9; O2SAT 97
[2022-01-03] MEDS: Famotidine 200 MG/20 ML MDV 20 MG in 0.9% Normal Saline (Pres. free 8 ML 300 MG IV (08:55)
--- NOTE | 2022-01-03 10:36 | EX.PCM.DISCH ---
Discharge Instructions Follow Up Care Test Results: Test results from this visit will be discussed in further detail at your follow-up appointment, if applicable. Discharge Plan Admission Admit Date/Time: 01/02/22 07:17 Primary Reason for Your Visit: partial bowel obstruction Attending Provider: Betsy Acosta Primary Care Provider: Care Physician,Chloe Primary Instructions Additional Instructions / Restrictions: start with clear liquids can advance over the next couple of days avoid carbonated beverages for a few days Discharge Orders/Prescriptions Prescriptions: No Action NK RF: 0 Referrals / Follow Up: Care Physician,No Primary [Primary Care Provider] - Disposition Discharge Orders: Discharge Patient (Routine); Ordered 01/03/22 Ordered By: Dr. Betsy Acosta
--- NOTE | 2022-01-03 10:36 | PCM.PN.SRG ---
Subjective Subjective patient doing well passing flatus denies abdominal pain Objective Data Objective Data Vital Signs: Vital Signs Temp Pulse Resp BP Pulse Ox 98.4 F 63 18 128/82 H 97 01/03/22 08:00 01/03/22 08:00 01/03/22 08:00 01/03/22 08:00 01/03/22 08:00 Oxygen Delivery Method Room Air Weight: 86.6 kg Body Mass Index (BMI) 27.3 Intake & Output: Intake and Output for Last 24 Hours 01/01/22 01/02/22 01/03/22 23:59 23:59 23:59 Intake Total 2039 / 2049 2045.83 / 2045.83 Output Total 500 / 900 850 / 850 Balance 1540 / 1150 1195.83 / 1195.83 Lab / Micro Data Result Diagrams: 01/02/22 02:25 01/02/22 02:25 Physical Exam Const alert and oriented x3 General Appearance: cooperative GI soft to palpation Assessment & Plan Assessment/Plan (1) Small bowel obstruction: PLAN: partial SBO resolved D/C NG tube d/c to home
[2022-01-03 12:00] VITALS: BP 121/85; PULSE 76; RESP 16; TEMP 37.1; O2SAT 100
== END 2022-01-03 12:06 | disposition home or self-care (01) | DRG 388 ==
LOC: ED 05:17 → MS3 07:46
PROVIDERS: Admitting Provider Surgery; Emergency Provider Emergency Medicine; Visit Provider Surgery
DX: K56.600 Partial intestinal obstruction, unspecified as to cause (principal); Q79.3 Gastroschisis
CPT/HCPCS: 74018; 74177; 80053; 81001; 83605; 83690; 85025; 94640; 99285; J7030; J7120; Q9967; A4216; J2405; J3490